=== PATIENT | female | born 1990 | race Caucasian/White ===

== ENCOUNTER 2017-01-20 08:04 | Outpatient (CLI) | payer BC ==
[2017-01-20 08:41] VITALS: BMI 27.1
[2017-01-20] MEDS ORDERED: TERBUTALINE SULFATE 1 MG/ML VIAL SUB-Q ONE (08:44)
[2017-01-20] MEDS ORDERED: LACTATED RINGERS 1,000 ML IV SCH (08:45)
[2017-01-20] MEDS ORDERED: LACTATED RINGERS 1,000 ML ONE (08:47)
[2017-01-20] MEDS ORDERED: IV START KIT ONE (08:47)
--- NOTE | 2017-01-20 10:56 | PCMAN ---
OB Admission Note - History : 5 Term: 3 : 0 Abortions (S&E): 1 Livin Gestational Age (weeks): 38 Days (#/7): 4 Admit Cervical Dilation:: FT Admit Cervical Effacement (%):: 70 Admit Station:: -3 Admit Presentaton:: breech Membrane Status: Intact Contractions: No Heart Rate:: 140 (category 1) Status:: good, active EFW:: 7.5lbs Summary of Course:: Regular visits since 11weeks, with early US confirming LMP dates. Short lapse in care after 35 weeks, so GBS was sent today. See record for details. No high risk concerns, though nausea and vomiting worse with this . Probable unstable lie with active baby for these past few weeks. Pt also describes a day last week when she and her kids were all sick and vomiting; she felt like the baby shifted position that day. - Labs Blood Type: A (+) positive - Review of Systems No signs of labor. No bleeding. - Physical Exam Psych/Mental Status: Mood/Affect Appropriate, Judgment/Insight Intact (Consent discussed in detail and signed.), Bonding Well Neurological: Alert, Normal Speech Lungs: Clear to Auscultation Bilaterally Cardiovascular: Regular Rate and Rhythm Abdomen: Normal Bowel Sounds Genitourinary: Normal Female Genitalia Skin: Normal Color, Warm - Problems (1) Breech or malpresentation convert to cephalic presentation antepartum Status: Acute Code: [id number]/Plan: Pt admitted for external cephalic version.
--- NOTE | 2017-01-20 20:47 | PROCNOTE ---
DAYAN LEMOS [id number] DATE OF : 1990 DATE OF PROCEDURE: 01/20/2017 PROCEDURE: EXTERNAL CEPHALIC VERSION (SUCCESSFUL). DESCRIPTION OF PROCEDURE: On the morning of 01/20/2017, Dayan was brought to the [facility] and an ultrasound was repeated. The baby was in a breech presentation, with the head in the left upper quadrant, the back to the maternal left and both legs were extended on the right side of the uterus. The breech was dipping into the pelvis, but the patient was not having any significant contractions. Her cervix was perhaps fingertip dilated, with the breech not well-applied. The options were discussed with the patient and her Gene. The risks and possible complications were reviewed. It was recommended that we attempt an external cephalic version. The patient had previously had an ECV that was successful with a prior . She gave consent. The patient was NPO. An IV was placed in her left arm. The team was assembled for possible emergency caesarian section and then the version was attempted. With the excellent assistance of Lindsey Gallardo, a first attempt was made to have the baby do a reversal. The breech was lifted up and out of the pelvis and towards the patient's right side and the vertex was gently guided downward. The baby came to a transverse position, but then as he held her there she rotated on her own, now with the head on the left side, the spine transverse and anterior, and the breech in the right lower quadrant. The baby was quite active and there was plenty of fluid. At one point, I believe the baby was practically sitting on the maternal spine with the head straight outward. The uterus was quite pliable and the baby was allowed to simply find her comfortable position. heart tones were evaluated periodically by ultrasound and always found to be well over 120. After this first attempt the baby was now in a breech position with the head in the left upper quadrant, the breech in the right lower quadrant, and the legs on the left side. This time a forward roll was attempted, first elevating the breech further towards the right side and then bringing the head down on the left side of the pelvis. When the head was in the left lower quadrant the baby shifted again, but did not move towards the pelvis, instead moved her head back up. At this point she was in an oblique position still, with the head in the left upper quadrant. The neck was a bit deflexed. The baby was quite active. heart tones were fine. A third attempt was made, again for a forward roll. This time it appeared that the baby had her legs flexed instead of extended. We were able to rotate her to head being nearly transverse on the left side and the breech deep on the right side. The placenta was anterior and on the right side. At this point the baby kicked and moved her head just above the pelvic brim. She then remained in this longitudinal position with her head down, the breech in the fundus of the uterus and the legs to the maternal right. heart tones were in the 140's. The patient was placed back on the monitor. We also placed a binder on her abdomen to try to help maintain this longitudinal cephalic presentation. At this point the patient was monitored for an hour and the tracing was Category-1. The options were discussed with the patient and her , including the possibility of an induction of labor. I did not recommend that. I am hopeful that this baby will now remain cephalic and that this patient will go into labor on her own. The patient understands and agrees with this plan.
== END 2017-01-20 12:06 | disposition home or self-care (01) ==
LOC: FBC 08:04 → FBCOUT 08:04
PROVIDERS: ATTEND Advanced Practice Midwife
DX: O32.1XX0 Maternal care for breech presentation, not applicable or unspecified (principal); Z3A.38 38 weeks gestation of pregnancy
CPT/HCPCS: 96360; 96361; 87081; 59412; 59025; 76815; J7120

== ENCOUNTER 2017-02-07 01:13 | Inpatient (IN) | payer BC ==
[2017-02-07] MEDS ORDERED: OXYTOCIN 10 UNITS/ML VIAL IM ONE (02:40)
[2017-02-07] MEDS ORDERED: CALCIUM CARBONATE 500 MG TAB.CHEW PO PRN (03:19)
[2017-02-07] MEDS ORDERED: BENZOCAINE/MENTHOL 60 APPLIC/BOT TP PRN ×2 (03:19)
[2017-02-07] MEDS ORDERED: DOCUSATE SODIUM 100 MG CAPSULE PO PRN (03:19)
[2017-02-07] MEDS ORDERED: MAGNESIUM HYDROXIDE 30 ML UDCUP PO PRN (03:19)
[2017-02-07] MEDS ORDERED: ACETAMINOPHEN 325 MG TABLET PO PRN (03:19)
[2017-02-07] MEDS ORDERED: OXYTOCIN IN NS 167 ML IV PRN (03:19)
[2017-02-07] MEDS ORDERED: HYDROCODONE/ACETAMINOPHEN 5/325MG TABLET PO PRN (03:19)
[2017-02-07] MEDS ORDERED: LANOLIN 50 APPLIC/7G TUBE TP PRN ×2 (03:19)
--- NOTE | 2017-02-07 03:31 | PCMAN ---
OB Admission Note - History : 5 Term: 3 : 0 Abortions (S&E): 1 Livin EDC:: 01/30/17 (by LMP and 13wk us) Gestational Age (weeks): 41 Days (#/7): 1 Admit Cervical Dilation:: 10 Admit Cervical Effacement (%):: 100 Admit Station:: +3 Admit Presentaton:: cephalic Membrane Status: Ruptured Rupture (Date): 02/07/17 Rupture (Time): 00:50 Membranes Comment:: clear fluid Labor Onset (Date): 02/06/17 Labor Onset (Time): 23:00 Contractions: Yes Contraction Frequency:: q 1-2min, lasting 60 sec Heart Rate:: 145 Summary of Course:: uncomplicated onset to care at 11wks x 12. Breech with successful version at 38wks, followed by confirmed vertex position in subsequent visits. Arrived on unit in active second stage. - Labs Blood Type: A (+) positive Rubella Status: Immune GBS Status: Negative - Review of Systems neg - Physical Exam General: Afebrile, Moderate Distress (active second stage) Neurological: Grossly Intact, Alert, Oriented x 4, Normal Gait, Normal Speech Genitourinary: Normal Female Genitalia Extremities: Full ROM - Problems (1) Active labor at term Status: Acute Code: [id number]/Plan: Abbreviated and delayed note due to direct patient care and eminent delivery upon arrival. A: at 41w1d 2nd stage P: Anticipate
--- NOTE | 2017-02-07 03:41 | PCMDEL ---
Delivery Note - Labor 1st stage (hr/min):: 4h32m 2nd stage (hr/min):: 0h32m 3rd stage (hr/min):: 0h6m Total (hr/min):: 5h10m Pushed (hr/min):: 0h10m - Delivery Delivery (Date): 02/08/16 Delivery (Time): 01:32 Gender: Female Presentation: Cephalic Position: OA Umbilical Cord: 3 Vessel, Nuchal Cord Delayed Cord Clamping:: > 3 min 1 Minute Total: 7 5 Minute Total: 9 Placenta:: spontaneous, zonia, intact, 3vc EBL:: 500ml Perineum:: intact - 1st deg perineal naturally hemostatic not requiring suture Suture:: none Anesthesia/Meds:: none Length ROM:: 0h42m Comments:: Deidre walked onto the unit actively pushing in the second stage. She pushed effectively in triage to deliver vigorous female over intact perineum. Baby delivered with loose nuchal cord and was easily delivered by somersault through the cord and handed to mom for immediate skin to skin. Delayed cord clamping until cord stopped pulsing, cut by FOB. IM pit given for AMTSL. Perineum inspected and small perineal superficial 1st degree/skid manfred noted and not repaired as naturally hemostatic. Spontaneous delivery of intact placenta, 3VC. Fundus firm midline at U. Hemostasis achieved and EBL 500ml. mom and baby in stable condition.
[2017-02-07] MEDS: IBUPROFEN 800 MG TABLET PO SCH ×2 (03:48→11:36)
[2017-02-07 15:27] VITALS: BP 112/57
--- NOTE | 2017-02-07 18:49 | PDOC39B ---
Hospital Course: ADMIT DATE: 02/07/17 DISCHARGE DATE: 02/07/17 ADMISSION DIAGNOSES: Active Labor PROCEDURES: HISTORY OF PRESENT ILLNESS: 26 year old G5 T3 L3 at 41 weeks 1 days presenting with active labor. HOSPITAL COURSE: The patient is doing well this evening and requesting to go home. She reports moderate cramping and Ibuprofen is helping. Would like an rx for this. is also going well. Deidre had some moderate bleeding immediately . She reports changing her pad every 3-4 hours at this time. She is ambulating, drinking, voiding. No BM as of yet. Declines Colace. Baby has been discharged by peds. By day of discharge the patient is stable, well and ready to go home. - Physical Exam Vital Signs: Temp Pulse Resp BP Pulse Ox 98.3 F 77 14 112/57 02/07/17 15:22 02/07/17 15:22 02/07/17 15:22 02/07/17 15:22 General: Afebrile Psych/Mental Status: Mood/Affect Appropriate Neurological: Grossly Intact, Alert Cardiovascular: Regular Rate and Rhythm Breast: Soft, Skin intact, Nipples Intact Fundus: Firm, Firm with Massage, Below Umbilicus Genitourinary: Normal Female Genitalia Lochia: Light Rectal Exam: Deferred Extremities: Full ROM Skin: Normal Color, Warm, Dry - Discharge Diagnosis (1) Normal course Status: AcuteAssessment/Plan: A/ Day 1 s/p vaginal P/ D/C home with baby tonight F/U in 2 weeks F/U with NB provider per their request - Discharge Plan Condition: Good Disposition: Home Additional Instructions: Midwifery 'After the ' handout given to patient. Prescriptions: Ibuprofen [Motrin] 800 mg PO Q8H PRN #120 tablet PRN Reason: Pain Follow-Up: Kinsey Duran CNM [Certified Nurse Public Speaking Instructor] - In 2 weeks
== END 2017-02-07 19:35 | disposition home or self-care (01) | DRG 774 ==
LOC: FBC 01:13
PROVIDERS: ADMIT Advanced Practice Midwife; ATTEND Advanced Practice Midwife
PROC: 10E0XZZ Delivery of Products of Conception, External Approach (ICD-10-PCS; principal; 2017-02-07)
PROC: 0HQ9XZZ Repair Perineum Skin, External Approach (ICD-10-PCS; 2017-02-07)
DX: O48.0 Post-term pregnancy (principal); O72.1 Other immediate postpartum hemorrhage; O70.0 First degree perineal laceration during delivery; O69.81X0 Labor and delivery complicated by cord around neck, without compression, not applicable or unspecified; Z37.0 Single live birth; Z3A.41 41 weeks gestation of pregnancy